=== PATIENT | male | born 1955 | race Caucasian/White ===

== ENCOUNTER 2017-02-12 15:52 | Emergency (ER) | payer MEDICAID ==
[2017-02-12 16:02] VITALS: BP 143/84
--- NOTE | 2017-02-12 16:10 | ED Physician Documentation ---
PD HPI ABD PAIN - Stated complaint Stated Complaint: LUMP IN ABD - Chief complaint Chief Complaint: Abd Pain - History obtained from History obtained from: Patient, Family - History of Present Illness Timing - onset: Other (He's had a lump above and to the right of his umbilicus for years but today became painful for several hours but there was no associated vomiting. Pain is gone again.) Review of Systems Cardiac: reports: Reviewed and negative Respiratory: reports: Reviewed and negative GI: denies: Nausea, Vomiting, Constipation, Diarrhea, Bloody / black stool PD PAST MEDICAL HISTORY - Past Medical History Past Medical History: No - Allergies Allergies/Adverse Reactions: Allergies Allergy/AdvReac Type Severity Reaction Status Date / Time No Known Drug Allergies Allergy Verified 02/12/17 16:02 - Social History Does the pt smoke?: No Smoking Status: Never smoker PD ED PE NORMAL - Vitals Vital signs reviewed: Yes - General General: Alert and oriented X 3, No acute distress - Abdomen Abdomen: Normal bowel sounds, Soft, Non tender, Other (Large but reducible periumbilical hernia without tenderness) - Neuro Neuro: Alert and oriented X 3, Normal speech - Psych Psych: Normal mood, Normal affect Results - Vitals Vitals: Vital Signs - 24 hr 02/12/17 15:55 Temperature 36.6 C Heart Rate 76 Respiratory 18 Rate Blood Pressure 143/84 H O2 Saturation 98 Oxygen O2 Source Room air PD MEDICAL DECISION MAKING - ED course ED course: He has a hernia that's been bothering him for some time, it sounds like he was incarcerated for a few hours today but spontaneously reduced. Advised outpatient surgical followup, also signs and symptoms that would necessitate an urgent reevaluation. Departure - Departure Disposition: 01 Home, Self Care Clinical Impression: Periumbilical hernia Condition: Good Record reviewed to determine appropriate education?: Yes Instructions: Hernia Surg Follow-Up: ROSARIO HOLLINGSWORTH MD [Provider Admit Priv/Credential] - Comments: As discussed you need to followup with the surgeon, return immediately if pain recurs again or if he vomits. Your blood pressure was elevated today on check in to the emergency department. This does not mean that you have hypertension, it is a common phenomenon to check into the emergency department and have elevated blood pressure. I recommend that you see your primary care physician within the week to have it rechecked when you're feeling better.
== END 2017-02-12 16:18 | disposition home or self-care (01) ==
LOC: ED 15:52
DX: K42.9 Umbilical hernia without obstruction or gangrene (principal); R03.0 Elevated blood-pressure reading, without diagnosis of hypertension
CPT/HCPCS: 99282; 99283

== ENCOUNTER 2018-06-10 13:07 | Emergency (ER) | payer MEDICAID ==
--- NOTE | 2018-06-10 16:17 | ED Physician Documentation ---
History of Present Illness - Stated complaint Stated Complaint: LEFT ARM PX - Chief complaint Chief Complaint: Ext Problem - History obtained from History obtained from: Patient - History of Present Illness Timing: How many weeks ago Pain level max: 6 (Pt states 6 months ago woke up with neck discomfort with left scapular pain radiating to his left arm after chopping wood. He went to a doctor who gave him steroid shot on the medial aspect of his left scapula and the pain went away. Until 1 week ago when he was moving heavy objects and the discomfort returned. Left scapular pain is intermittent and sometimes radiates to his left arm and sometimes with tingling of his posterior left arm and fingers. He took motrin 800 mg [employer] and started massaging his left scapula on the wall while waiting in the E.R. which relieved the pain.) Pain level now: 0 Quality: left neck/scapula Radiates to: left arm Improved by: rest, NSAIDS Worsened by: moving Review of Systems Ten Systems: 10 systems reviewed and negative Constitutional: denies: Fever, Myalgias Cardiac: denies: Chest pain / pressure, Palpitations Respiratory: denies: Dyspnea, Cough GI: denies: Abdominal Pain Musculoskeletal: reports: Neck pain, Extremity pain. denies: Back pain, Joint pain, Extremity swelling, Joint swelling Neurologic: denies: Generalized weakness, Focal weakness, Numbness, Difficulty speaking, Headache, Head injury PD PAST MEDICAL HISTORY - Past Medical History Past Medical History: No - Past Surgical History Past Surgical History: No - Present Medications Home Medications: Ambulatory Orders Medication Instructions Recorded Confirmed No Known Home Medications 06/10/18 06/10/18 - Allergies Allergies/Adverse Reactions: Allergies Allergy/AdvReac Type Severity Reaction Status Date / Time No Known Drug Allergies Allergy Verified 06/10/18 13:13 - Social History Does the pt smoke?: No Smoking Status: Never smoker - Family History Family history: reports: Non contributory PD ED PE NORMAL - Vitals Vital signs reviewed: Yes - General General: Alert and oriented X 3, No acute distress, Well developed/nourished - HEENT HEENT: Moist mucous membranes - Neck Neck: Supple, no meningeal sign, No bony TTP, No adenopathy, Other (FROM) - Cardiac Cardiac: RRR, No murmur, Strong equal pulses - Respiratory Respiratory: No respiratory distress, Clear bilaterally - Abdomen Abdomen: Normal bowel sounds, Soft, Non tender, Non distended - Back Back: No CVA TTP, No spinal TTP - Derm Derm: Normal color, Warm and dry - Extremities Extremities: No deformity, No tenderness to palpate, Normal ROM s pain, No edema - Neuro Neuro: Alert and oriented X 3, No motor deficit, No sensory deficit - Psych Psych: Normal mood, Normal affect Results - Vitals Vitals: Vital Signs - 24 hr 06/10/18 13:11 Temperature 36.4 C L Heart Rate 73 Respiratory 18 Rate Blood Pressure 110/73 O2 Saturation 97 Oxygen O2 Source Room air PD MEDICAL DECISION MAKING - ED course Complexity details: re-evaluated patient (Pt NAD and nontoxic appearing. ), d/w patient (Discussed options of treatment since pt does not want any xrays done. He will take NSAIDS and get a referral to his PCP for a spine or ortho or chiro for treatment. ) - Sepsis Event Vital Signs: Vital Signs - 24 hr 06/10/18 13:11 Temperature 36.4 C L Heart Rate 73 Respiratory 18 Rate Blood Pressure 110/73 O2 Saturation 97 Oxygen O2 Source Room air Departure - Departure Disposition: 01 Home, Self Care Clinical Impression: Chronic scapular pain, Paresthesia and pain of left extremity Condition: Good Instructions: ED Neck Back Pain General, ANTI-INFLAMMATORY, General Follow-Up: Erik Chang MD [Primary Care Provider] - Within 3 Days Comments: CALL YOUR PCP FOR APPOINTMENT AND REFERRAL TO AN ORTHOPEDIST OR SPINE DOCTOR FOR REEVALUATION. OTC MOTRING 200 MG 3-4 TABS WITH FOOD ONLY EVERY 8 HOURS NEEDED FOR PAIN. IF WORSE RETURN TO THE E.R. Discharge Date/Time: 06/10/18 16:23
[2018-06-10 16:40] VITALS: BP 115/74
== END 2018-06-10 16:23 | disposition home or self-care (01) ==
LOC: ED 13:07
DX: M25.512 Pain in left shoulder (principal); R20.2 Paresthesia of skin; M79.602 Pain in left arm
CPT/HCPCS: 99282; 99283

== ENCOUNTER 2018-06-26 13:37 | Outpatient (CLI) | payer MEDICAID ==
[2018-06-26 18:10] LABS: HGB - HEMOGLOBIN 16.1 g/dL (14.0-18.0); MEAN CORPUSCULAR HEMOGLOBIN 30.2 pg (27.0-31.0); MEAN CORPUSCULAR HGB CONC 33.5 g/dL (32.0-36.0); MEAN CORPUSCULAR VOLUME 90.2 fL (80.0-94.0); MEAN PLATELET VOLUME 8.2 fL (7.4-11.4); RED BLOOD COUNT 5.31 10^6/uL (4.70-6.10); RED CELL DISTRIBUTION WIDTH 12.8 % (12.0-15.0); WHITE BLOOD COUNT 4.5 x10^3/uL (4.8-10.8)
[2018-06-26 18:32] LABS: ALBUMIN/GLOBULIN RATIO 1.7 (1.0-2.2); ALKALINE PHOSPHATASE 64 IU/L (42-121); ALT ALANINE AMINOTRANSFERASE 10 IU/L (10-60); AST ASPARTATE AMINOTRANSFERASE 13 IU/L (10-42); BILIRUBIN,TOTAL 1.4 mg/dL (0.2-1.0); BUN - BLOOD UREA NITROGEN 14 mg/dL (6-20); CARBON DIOXIDE - CO2 30 mmol/L (21-32); CHLORIDE 102 mmol/L (101-111); CHOL/HDL RATIO 4.4 (<5.0); CHOLESTEROL 153 mg/dL; CREATININE 0.8 mg/dL (0.6-1.2); GFR - MDRD 98 (>89); GLUCOSE 110 mg/dL (70-100); HDL CHOLESTEROL 35 mg/dL; LDL CHOLESTEROL,CALCULATED 104 mg/dL; SODIUM 139 mmol/L (135-145); TOTAL PROTEIN 6.3 g/dL (6.7-8.2); VLDL CHOLESTEROL 14 mg/dL
== END 2018-06-26 13:38 | disposition home or self-care (01) ==
LOC: LAB.F 13:37
PROVIDERS: ATTEND Internal Medicine
DX: Z00.00 Encounter for general adult medical examination without abnormal findings (principal)
CPT/HCPCS: 36415; 80053; 80061; 83721; 85027

== ENCOUNTER 2018-10-20 21:25 | Emergency (ER) | payer MEDICAID ==
--- NOTE | 2018-10-20 22:29 | XRAY Report ---
Reason: Chest pain Procedure Date: 10/20/2018 Accession Number: [id number] / [id number] Procedure: XR - Chest 1 View X-Ray CPT Code: 54892 FULL RESULT: EXAM: CHEST RADIOGRAPHY EXAM DATE: 10/20/2018 09:59 PM. CLINICAL HISTORY: Chest pain. COMPARISON: None. TECHNIQUE: 1 view. FINDINGS: Lungs/Pleura: The lungs appear hyperinflated, suggestive of COPD. No focal consolidation, effusion, or pneumothorax. Mediastinum: Within exam limitations, the cardiomediastinal contour is normal. Other: None. IMPRESSION: Hyperinflation, but no evidence of acute cardiopulmonary disease. RADIA
[2018-10-20 22:48] LABS: BASOPHILS % (AUTO) 0.5 %; EOSINOPHILS # (AUTO) 0.1 10^3/uL (0.0-0.7); EOSINOPHILS % (AUTO) 1.5 %; HGB - HEMOGLOBIN 14.5 g/dL (14.0-18.0); LYMPHOCYTES # (AUTO) 1.2 10^3/uL (1.5-3.5); LYMPHOCYTES % (AUTO) 20.9 %; MEAN CORPUSCULAR HEMOGLOBIN 31.3 pg (27.0-31.0); MEAN CORPUSCULAR HGB CONC 33.7 g/dL (32.0-36.0); MEAN CORPUSCULAR VOLUME 92.7 fL (80.0-94.0); MONOCYTES # (AUTO) 0.4 10^3/uL (0.0-1.0); MONOCYTES % (AUTO) 6.9 %; NEUTROPHILS # (AUTO) 3.9 10^3/uL (1.5-6.6); NEUTROPHILS % (AUTO) 70.2 %; PLT - PLATELET COUNT 285 10^3/uL (130-450); RED BLOOD COUNT 4.63 10^6/uL (4.70-6.10); RED CELL DISTRIBUTION WIDTH 13.1 % (12.0-15.0); WHITE BLOOD COUNT 5.6 x10^3/uL (4.8-10.8)
[2018-10-20 23:01] LABS: ALBUMIN 3.9 g/dL (3.2-5.5); ALBUMIN/GLOBULIN RATIO 1.4 (1.0-2.2); BILIRUBIN,TOTAL 1.6 mg/dL (0.2-1.0); CALCIUM 8.4 mg/dL (8.5-10.3); CREATININE 0.9 mg/dL (0.6-1.2); TOTAL PROTEIN 6.6 g/dL (6.7-8.2)
--- NOTE | 2018-10-20 23:07 | ED Physician Documentation ---
PD HPI CHEST PAIN - Stated complaint Stated Complaint: CP/ITCHY - Chief complaint Chief Complaint: Cardiac - History obtained from History obtained from: Patient - History of Present Illness Timing - onset: Today (early evening tonight) Timing - details: Gradual onset, Intermittant Quality: Pain Location: Substernal, Left chest Radiation: No: Jaw, Neck, Back, Abdominal, Left upper extremity, Right upper extremity Improved by: Nothing Worsened by: Other (no exacerbating factors) Associated symptoms: No: Shortness of air, Diaphoresis, Nausea, Vomiting, Feeling faint / dizzy, General Weakness, Palpitations, Cough Similar symptoms before: Has not had sx before Recently seen: Not recently seen - Additional information Additional information: c/o mid/left chest pain since this evening while at rest without apparent inciting, exacerbating, or ameliorating factors. this has resolved while awaiting evaluation. also has had few weeks of scratchy, itchy feeling inside my chest x weeks. also left neck pain radiating down LUE x 1 month Review of Systems Constitutional: reports: Reviewed and negative Cardiac: reports: Chest pain / pressure. denies: Palpitations, Pedal edema Respiratory: reports: Reviewed and negative GI: reports: Reviewed and negative : reports: Reviewed and negative Skin: reports: Reviewed and negative Musculoskeletal: reports: Neck pain. denies: Back pain Neurologic: denies: Generalized weakness, Focal weakness, Numbness, Headache PD PAST MEDICAL HISTORY - Past Medical History Past Medical History: No - Past Surgical History Past Surgical History: No - Present Medications Home Medications: Ambulatory Orders Medication Instructions Recorded Confirmed No Known Home Medications 06/10/18 06/10/18 - Allergies Allergies/Adverse Reactions: Allergies Allergy/AdvReac Type Severity Reaction Status Date / Time No Known Drug Allergies Allergy Verified 10/20/18 21:47 - Social History Does the pt smoke?: No Smoking Status: Never smoker Does the pt drink ETOH?: No Does the pt have substance abuse?: No - Immunizations Immunizations are current?: Yes - POLST Patient has POLST: No PD ED PE NORMAL - Vitals Vital signs reviewed: Yes - General General: Alert and oriented X 3, No acute distress, Well developed/nourished - HEENT HEENT: Moist mucous membranes - Neck Neck: Supple, no meningeal sign, No bony TTP, Thyroid normal - Cardiac Cardiac: RRR, No murmur, No gallop, No rub - Respiratory Respiratory: No respiratory distress, Clear bilaterally - Abdomen Abdomen: Normal bowel sounds, Soft, Non tender, Non distended - Derm Derm: Normal color, Warm and dry, No rash - Extremities Extremities: No edema - Neuro Neuro: No motor deficit, No sensory deficit Results - Vitals Vitals: Vital Signs - 24 hr 10/20/18 10/20/18 10/20/18 21:30 22:32 23:03 Temperature 37.1 C Heart Rate 87 75 79 Respiratory 17 14 15 Rate Blood Pressure 124/84 H 103/70 111/73 O2 Saturation 97 94 95 10/20/18 23:49 Temperature Heart Rate 72 Respiratory 17 Rate Blood Pressure 130/80 O2 Saturation 97 Oxygen O2 Source Room air - EKG (time done) No standard instances Rate: Rate (enter#) (76) Rhythm: NSR [place]: Normal Intervals: Normal [place] QRS: Normal Ischemia: Normal ST segments - Labs Labs: Laboratory Tests 10/20/18 10/20/18 10/20/18 22:42 22:42 22:42 WBC 5.6 RBC 4.63 L Hgb 14.5 Hct 42.9 MCV 92.7 MCH 31.3 H MCHC 33.7 RDW 13.1 Plt Count 285 MPV 7.0 L Neut # (Auto) 3.9 Lymph # (Auto) 1.2 L Bacon # (Auto) 0.4 Eos # (Auto) 0.1 Baso # (Auto) 0.0 Absolute Nucleated RBC 0.00 Nucleated RBC % 0.0 Sodium 137 Potassium 3.8 Chloride 104 Carbon Dioxide 26 Anion Gap 7.0 BUN 26 H Creatinine 0.9 Estimated GFR (MDRD) 86 L Glucose 111 H Calcium 8.4 L Total Bilirubin 1.6 H AST 16 ALT 21 Alkaline Phosphatase 61 Troponin I < 0.04 Total Protein 6.6 L Albumin 3.9 Globulin 2.7 Albumin/Globulin Ratio 1.4 Lipase 38 - Rads (name of study) chest xray Radiology: Prelim report reviewed, See rad report PD MEDICAL DECISION MAKING - ED course Complexity details: reviewed results, re-evaluated patient, considered differential, d/w patient Departure - Departure Disposition: 01 Home, Self Care Clinical Impression: Chest pain, Cervical radiculopathy Condition: Good Instructions: ED Chest Pain Atypical Unkn Cause, ED Cervical Radiculopathy Comments: Contact your primary care provider in the morning to arrange for next available appointment Discharge Date/Time: 10/20/18 23:58
[2018-10-20 23:49] VITALS: BP 130/80
== END 2018-10-20 23:58 | disposition home or self-care (01) ==
LOC: ED 21:25
DX: R07.89 Other chest pain (principal); M54.12 Radiculopathy, cervical region
CPT/HCPCS: 36415; 71045; 80053; 83690; 84484; 85025; 93005; 99283; 99284

== ENCOUNTER 2018-10-22 14:15 | Outpatient (CLI) | payer MEDICAID ==
--- NOTE | 2018-10-23 10:43 | XRAY Report ---
Reason: CERVICAL RADICULOPATHY,LEFT NECK PAIN Procedure Date: 10/22/2018 Accession Number: [id number] / [id number] Procedure: XR - Cervical Spine Complete CPT Code: FULL RESULT: EXAM: CERVICAL SPINE RADIOGRAPHY EXAM DATE: 10/22/2018 02:33 PM. CLINICAL HISTORY: Cervical radiculopathy, down left arm; neck pain. COMPARISONS: None. TECHNIQUE: 5 views. FINDINGS: Alignment: Normal. No spondylolisthesis or scoliosis. Bones: The cervical vertebral bodies and posterior elements are well-visualized from the skull base through C7-T1. No fractures or bone lesions. Disks: Mild degenerative changes with mild loss of disk space height at C6-C7. Facets: Lateral mass and facet generative changes are noted, moderate. Neural Foramina: The neural foramina have bony patency bilaterally. Soft Tissues: Normal. No prevertebral soft tissue swelling. The visualized lung apices are clear. IMPRESSION: Patent osseous neural foramina with mild to moderate degenerative changes. RADIA
== END 2018-10-22 14:16 | disposition home or self-care (01) ==
LOC: DI 14:15
PROVIDERS: ATTEND Family Medicine
DX: M50.323 Other cervical disc degeneration at C6-C7 level (principal); M47.9 Spondylosis, unspecified
CPT/HCPCS: 72050